=== PATIENT | female | born 1965 | race Hispanic/Latino ===

== ENCOUNTER 2022-08-04 11:06 | Emergency (ER) | payer BC, SELFPAY ==
[2022-08-04 11:25] VITALS: BP 122/72; PULSE 62; RESP 14; TEMP 36.5; O2SAT 99; BMI 37.1
[2022-08-04] MEDS: KETOROLAC 30 MG/ML VIAL 15 MG IV (11:47)
[2022-08-04 11:51] LABS: Add Manual Diff / Slide Review NO; Basophils Absolute Auto 100 /uL (0-100); Basophils Percent Auto 1.1 % (0-2); Eosinophils Absolute Auto 200 /uL (0-450); Eosinophils Percent Auto 3.4 % (2-4); Hematocrit 42.4 % (36-46); Hemoglobin 14.3 g/dL (12.0-16.0); Lymphocytes Absolute Auto 2400 /uL (1100-4500); Lymphocytes Percent Auto 42.8 % (25-40); Mean Corpuscular HGB Conc 33.8 % (30-36); Mean Corpuscular Volume 91.6 fL (80-100); Monocytes Absolute Auto 400 /uL (0-900); Monocytes Percent Auto 7.5 % (3-14); Neutrophils Absolute Auto 2600 /uL (1500-7000); Neutrophils Percent Auto 45.2 % (50-75); Platelet Count 289 X10^3/uL (150-400); Red Blood Cell Count 4.63 X10^6/uL (4.0-5.2); White Blood Cell Count 5.7 X10^3/uL (4.5-11.0)
[2022-08-04 11:59] LABS: Alanine Aminotransferase 31 IU/L (<35); Albumin 4.5 g/dL (3.5-5.0); Albumin Globulin Ratio 1.3 (1.0-2.8); Alkaline Phosphatase 97 U/L (38-126); Aspartate Aminotransferase 25 IU/L (14-36); BUN Creatinine Ratio 16.3 (6-22); Bilirubin Total 0.8 mg/dL (0.2-1.3); Blood Urea Nitrogen 13 mg/dL (7-17); Calcium 9.3 mg/dL (8.4-10.2); Carbon Dioxide 29 mmol/L (22-32); Chloride 102 mmol/L (98-107); Estimated Glomerular Filt Rate > 60 mL/min (>60); Globulin 3.4 g/dL (1.7-4.1); Glucose 107 mg/dL (70-100); HEMOLYSIS < 15 (0-50); Lipase 85 U/L (23-300); Sodium 140 mmol/L (137-145); Total Protein 7.9 g/dL (6.3-8.2)
--- NOTE | 2022-08-04 12:45 | DI.US.S_ITS ---
PROCEDURE: US ABDOMEN LIMITED INDICATIONS: RUQ pain TECHNIQUE: Real-time focused scanning was performed of the abdomen, with image documentation. COMPARISON: None. FINDINGS: The liver demonstrates normal size. The liver demonstrates generalized mildly increased echogenicity. This decreases ultrasound sensitivity for detection of hepatic masses. Status post cholecystectomy. There is no biliary dilatation for a post cholecystectomy patient, the common bile duct measures 9 mm. The pancreas itself is unremarkable. Along the body of the pancreas, there is a nonvascular fluid collection seen that measures up to 16 mm. IMPRESSION: Status post cholecystectomy, without biliary dilatation. Apparent 16 mm cystic lesion seen along the body of the pancreas. When clinically appropriate, please consider a dedicated pancreas protocol CT or MRI for further evaluation. The liver demonstrates increased echogenicity. This finding is nonspecific, yet it is most commonly attributed to fatty infiltration. Dictated by: Alton Cheng M.D. on 08/04/2022 at 13:26 Approved by: Alton Cheng M.D. on 08/04/2022 at 13:27
--- NOTE | 2022-08-04 14:11 | ED.ABDPAIN ---
HPI - Abdominal Pain <KYLEE Henson - Last Filed: 08/04/22 16:39> General Chief Complaint: Abdominal Pain Stated Complaint: PHYS REFERRED; RT UPPER QUAD PAIN Time Seen by Provider: 08/04/22 14:10 Source: patient Mode of arrival: Ambulatory History of Present Illness HPI narrative: 56-year-old female, never smoker, presents emergency department with right-sided lower rib pain x2 weeks. Patient was evaluated in the [facility] walk-in clinic earlier today and referred to the emergency department for advanced imaging. Patient denies any trauma to that area but reports that the pain was initially worse but occurred less frequently, but is now constant and less intense. Patient states that when she uses her arms to get out of bed, lower herself into a bathtub or to rollover in bed from her right side to the left, the pain is worsened. History of cholecystectomy. Related Data Home Medications Medication Instructions Recorded Confirmed No Known Home Medications 08/04/22 08/04/22 Allergies Allergy/AdvReac Type Severity Reaction Status Date / Time hydrocodone AdvReac Intermediate ITCHING Verified 08/04/22 11:30 Review of Systems <KYLEE Henson - Last Filed: 08/04/22 16:39> Review of Systems Narrative: Narrative: See HPI. GENERAL: Denies chills, fatigue, fever, sweats. HEENT: Denies sinus pain, ear pain, sore throat, difficulty swallowing, dizziness. RESPIRATORY: Denies dyspnea, cough, wheezing, sputum. CARDIOVASCULAR: Denies chest pain, palpitations, edema. GASTROINTESTINAL: Denies nausea, vomiting, abdominal pain, diarrhea, constipation. : Denies dysuria, frequency, incontinence, hematuria, urinary retention, flank pain. MSK: Denies weakness, joint pain. Endorses right-sided lower rib pinpoint pain. SKIN: Denies rash, skin lesions, or pruritis. NEUROLOGIC: Denies weakness, dizziness, headache, numbness, confusion. PSYCHIATRIC: No concerning psychosocial issues. Patient History <KYLEE Henson - Last Filed: 08/04/22 16:39> Social History Smoking Status: Never smoker Smoking Status: Never smoker alcohol intake frequency: 0-2 drinks per day Substance Use Type: does not use Exam <KYLEE Henson - Last Filed: 08/04/22 16:39> Narrative Exam Narrative: Exam Narrative: GENERAL: This is a well-nourished, well-developed patient, in no acute distress. HEAD: Atraumatic. Normocephalic. EYES: Pupils equal round and reactive. Extraocular motions intact. No scleral icterus, injection or drainage. NECK: Trachea midline. No JVD or lymphadenopathy. Nontender. CARDIOVASCULAR: Regular rate and rhythm without murmurs, peripheral pulses intact, cap refill <2 sec. RESPIRATORY: Breath sounds equal and clear bilaterally. No wheezes, rales, or rhonchi. No cough. No increased respiratory effort. No accessory muscle use. GASTROINTESTINAL: Abdomen soft, non-tender, nondistended without guarding or rebound. No suprapubic pain. No CVA tenderness. MSK: Moves all extremities. Normal range of motion, no clubbing or edema. Neurovascularly intact. Pinpoint tenderness of right medial lower rib/ intercostal region #7. NEURO: A&O x 3. SKIN: Warm, dry, no rashes or lesions noted. Initial Vital Signs Initial Vital Signs: Vital Signs Temperature 97.7 F 08/04/22 11:25 Pulse Rate 62 08/04/22 11:25 Respiratory Rate 14 08/04/22 11:25 Blood Pressure 122/72 08/04/22 11:25 Pulse Oximetry 99 08/04/22 11:25 Oxygen Delivery Method 08/04/22 11:25 Reviewed <Suki Saldana DO - Last Filed: 08/04/22 18:50> Initial Vital Signs Initial Vital Signs: Vital Signs Temperature 97.7 F 08/04/22 11:25 Pulse Rate 62 08/04/22 11:25 Respiratory Rate 14 08/04/22 11:25 Blood Pressure 122/72 08/04/22 11:25 Pulse Oximetry 99 08/04/22 11:25 Oxygen Delivery Method 08/04/22 11:25 Course <KYLEE Henson - Last Filed: 08/04/22 16:39> Orders Ordered: ED Orders 08/04/22 11:40 Complete Blood Count AUTO DIFF Stat Comprehensive Metabolic Panel Stat Lipase Stat 08/04/22 11:46 EKG-12 Lead Stat 08/04/22 12:45 US abdomen limited Stat 08/04/22 14:50 CT Abdomen Pancreatic Protocol Stat Discontinued Medications Ketorolac Tromethamine (Ketorolac 30 Mg/Ml Vial) 15 mg IV NOW ONE Stop: 08/04/22 11:41 Last Admin: 08/04/22 11:47 Dose: 15 mg Documented By: MINNIE Ondansetron HCl (Ondansetron 4 Mg/2 Ml Inj) 4 mg IV NOW ONE Stop: 08/04/22 11:40 Last Admin: 08/04/22 11:40 Dose: Not Given Documented By: MINNIE Vital Signs Vital signs: Vital Signs - 8 hr 08/04/22 11:25 08/04/22 14:59 08/04/22 16:48 Temperature 97.7 F Pulse Rate 62 56 L 87 Respiratory Rate 14 15 Blood Pressure 122/72 119/56 L 110/78 Pulse Oximetry 99 98 99 Oxygen Delivery Method Room Air Room Air Room Air <Suki Saldana DO - Last Filed: 08/04/22 18:50> Orders Ordered: ED Orders 08/04/22 11:40 Complete Blood Count AUTO DIFF Stat Comprehensive Metabolic Panel Stat Lipase Stat 08/04/22 11:46 EKG-12 Lead Stat 08/04/22 12:45 US abdomen limited Stat 08/04/22 14:50 CT Abdomen Pancreatic Protocol Stat Discontinued Medications Ketorolac Tromethamine (Ketorolac 30 Mg/Ml Vial) 15 mg IV NOW ONE Stop: 08/04/22 11:41 Last Admin: 08/04/22 11:47 Dose: 15 mg Documented By: MINNIE Ondansetron HCl (Ondansetron 4 Mg/2 Ml Inj) 4 mg IV NOW ONE Stop: 08/04/22 11:40 Last Admin: 08/04/22 11:40 Dose: Not Given Documented By: MINNIE Vital Signs Vital signs: Vital Signs - 8 hr 08/04/22 11:25 08/04/22 14:59 08/04/22 16:48 Temperature 97.7 F Pulse Rate 62 56 L 87 Respiratory Rate 14 15 Blood Pressure 122/72 119/56 L 110/78 Pulse Oximetry 99 98 99 Oxygen Delivery Method Room Air Room Air Room Air MDM - Abdominal Pain <KYLEE Henson - Last Filed: 08/04/22 16:39> Differential Diagnosis Differential diagnosis: Likely abdominal pain, pancreatitis and other (Costochondritis); Unlikely acute appendicitis Lab Data 08/04/22 11:40 08/04/22 11:40 Labs: Lab Results 08/04/22 08/04/22 Range/Units 11:40 11:40 WBC 5.7 (4.5-11.0) X10^3/uL RBC 4.63 (4.0-5.2) X10^6/uL Hgb 14.3 (12.0-16.0) g/dL Hct 42.4 (36-46) % MCV 91.6 (80-100) fL MCH 31.0 (26-34) PG MCHC 33.8 (30-36) % RDW 13.0 (11.6-14.8) % Plt Count 289 (150-400) X10^3/uL Neut % (Auto) 45.2 L (50-75) % Lymph % (Auto) 42.8 H (25-40) % [place] % (Auto) 7.5 (3-14) % Eos % (Auto) 3.4 (2-4) % Baso % (Auto) 1.1 (0-2) % Neut # (Auto) 2600 (2301-9167) /uL Lymph # (Auto) 2400 (7552-6699) /uL [place] # (Auto) 400 (0-900) /uL Eos # (Auto) 200 (0-450) /uL Baso # (Auto) 100 (0-100) /uL Sodium 140 (137-145) mmol/L Potassium 4.0 (3.4-5.1) mmol/L Chloride 102 (98-107) mmol/L Carbon Dioxide 29 (22-32) mmol/L BUN 13 (7-17) mg/dL Creatinine 0.80 (0.52-1.04) mg/dL Estimated GFR > 60 (>60) mL/min BUN/Creatinine Ratio 16.3 (6-22) Glucose 107 H (70-100) mg/dL Calcium 9.3 (8.4-10.2) mg/dL Total Bilirubin 0.8 (0.2-1.3) mg/dL AST 25 (14-36) IU/L ALT 31 (<35) IU/L Alkaline Phosphatase 97 (38-126) U/L Total Protein 7.9 (6.3-8.2) g/dL Albumin 4.5 (3.5-5.0) g/dL Globulin 3.4 (1.7-4.1) g/dL Albumin/Globulin Ratio 1.3 (1.0-2.8) Lipase 85 (23-300) U/L Point of care testing: Urine Dip Bedside Urine Glucose Negative Bedside Urine Bilirubin - Negative Bedside Urine Ketone - Negative Urine Specific [place] 1.015 Bedside Urine Occult Blood - Negative Bedside Urine pH 7 Bedside Urine Protein - Negative Bedside Urine Urobilinogen - Negative Bedside Urine Nitrite - Negative Bedside Urine Leukocytes - Negative Esterase Imaging Data US - abdomen: Radiologist's Impression: [address] [address] Ultrasound Report Signed Patient: Flora Jesus MR#: [id number] : 1965 Acct:[id number] Age/Sex: 56 / F Date of Service: 08/04/22 Loc: ED Accession Number: [id number] ?? Procedure: US abdomen limited Ordering Provider: Suki Saldana D.O. PROCEDURE: US ABDOMEN LIMITED ? INDICATIONS:? RUQ pain ? TECHNIQUE:? Real-time focused scanning was performed of the abdomen, with image documentation.? ? COMPARISON:? None. ? FINDINGS:? The liver demonstrates normal size. The liver demonstrates generalized mildly increased echogenicity. This decreases ultrasound sensitivity for detection of hepatic masses.? ? Status post cholecystectomy. ? There is no biliary dilatation for a post cholecystectomy patient, the common bile duct measures 9 mm.? ? The pancreas itself is unremarkable.? Along the body of the pancreas, there is a nonvascular fluid collection seen that measures up to 16 mm.? IMPRESSION:? Status post cholecystectomy, without biliary dilatation. ? Apparent 16 mm cystic lesion seen along the body of the pancreas.? When clinically appropriate, please consider a dedicated pancreas protocol CT or MRI for further evaluation. ? The liver demonstrates increased echogenicity.? This finding is nonspecific, yet it is most commonly attributed to fatty infiltration.? ? ? Dictated by: Alton Cheng M.D. on 08/04/2022 at 13:26 ? ? Approved by: Alton Cheng M.D. on 08/04/2022 at 13:27 ? CT scan - abdomen/pelvis: Radiologist's Impression: [address] [place] [address] CT Scan Report Signed Patient: Flora Jesus MR#: [id number] : 1965 Acct:[id number] Age/Sex: 56 / F Date of Service: 08/04/22 Loc: ED Accession Number: [id number] ?? Procedure: CT Abdomen Pancreatic Protocol Ordering Provider: Rj Ponce PROCEDURE:? CT ABDOMEN PANCREATIC PROTOCOL ? INDICATIONS:? f/u US results, 16 mm cystic mass on pancreas ? TECHNIQUE:? After the administration of intravenous contrast, 3 mm thick pancreatic-phase images acquired from the diaphragm to the iliac crests.? 3 mm thick coronal and sagittal reformats were performed.? For radiation dose reduction, the following was used:? automated exposure control, adjustment of mA and/or kV according to patient size.? ? COMPARISON:? [facility], , US ABDOMEN LIMITED, 08/04/2022, 13:22. ? FINDINGS:? Image quality:? Excellent.? ? Lung bases:? Lung bases are clear.? Heart size is normal.? ? Pancreas:? Pancreas enhances uniformly.? No peripancreatic fluid collection.? There is a small cyst in the body of the pancreas measuring 1.4 cm, ().? No pancreatic ductal dilatation.? No suspicious enhancement. ? Other solid organs:? Liver is normal in size and enhancement.? Gallbladder is absent.? Biliary system is non dilated.? Spleen is normal in size and enhancement.? No adrenal nodules.? Kidneys are normal in size and enhancement, without hydronephrosis.? Small nonobstructing at left kidney stone measuring 0.6 cm.? Punctate nonobstructing right kidney stone. ? Peritoneum and bowel:? Unenhanced bowel loops demonstrate normal wall thickness and caliber.? Appendix is partially visualized and is not distended.? No free fluid or air.? ? Nodes and vessels:? No retroperitoneal or mesenteric adenopathy by size criteria.? Aorta and inferior vena cava are normal in size. ? Bones:? No suspicious bony lesions.? Moderate degenerative change in the lumbar spine.? No vertebral body compression fractures.? ? Miscellaneous:? No ventral hernias.? Small clip in the lower abdomen. ? ? IMPRESSION:? 1. No acute abnormality identified.? No free fluid. ? 2. Small nonobstructing kidney stones. ? 3. Small cyst in the body of the pancreas measuring 1.4 cm.? This could represent a serous cyst or IPMN.? Recommend follow-up MRI pancreas in 1 year. ? ? ? Dictated by: Mark Nagel M.D. on 08/04/2022 at 15:54 ? ? Approved by: Mark Nagel M.D. on 08/04/2022 at 16:02 ? MDM Narrative Medical decision making narrative: 56-year-old female presents to the emergency department with complaints right upper quadrant/lower rib pain x2 weeks. Assessment was encouraging with no red flag symptoms noticed. Labs were not concerning. Abdominal ultrasound reveals 16 mm cystic lesion seen along the body of the pancreas. Abdominal CT scan ordered and reveals 1.4 cm small cyst in the body of the pancreas. Symptoms are suspicious for costochondritis. Recommended ibuprofen 3 times a day with food or milk for the next 3-5 days. Recommend patient follow up with her family doctor as needed. For any worsening symptoms, patient directed to return to the emergency department. Patient verbalized understanding was agreeable with course of action. <Suki Saldaan, DO - Last Filed: 08/04/22 18:50> Lab Data Labs: Lab Results 08/04/22 08/04/22 Range/Units 11:40 11:40 WBC 5.7 (4.5-11.0) X10^3/uL RBC 4.63 (4.0-5.2) X10^6/uL Hgb 14.3 (12.0-16.0) g/dL Hct 42.4 (36-46) % MCV 91.6 (80-100) fL MCH 31.0 (26-34) PG MCHC 33.8 (30-36) % RDW 13.0 (11.6-14.8) % Plt Count 289 (150-400) X10^3/uL Neut % (Auto) 45.2 L (50-75) % Lymph % (Auto) 42.8 H (25-40) % [place] % (Auto) 7.5 (3-14) % Eos % (Auto) 3.4 (2-4) % Baso % (Auto) 1.1 (0-2) % Neut # (Auto) 2600 (8615-7279) /uL Lymph # (Auto) 2400 (0885-9928) /uL [place] # (Auto) 400 (0-900) /uL Eos # (Auto) 200 (0-450) /uL Baso # (Auto) 100 (0-100) /uL Sodium 140 (137-145) mmol/L Potassium 4.0 (3.4-5.1) mmol/L Chloride 102 (98-107) mmol/L Carbon Dioxide 29 (22-32) mmol/L BUN 13 (7-17) mg/dL Creatinine 0.80 (0.52-1.04) mg/dL Estimated GFR > 60 (>60) mL/min BUN/Creatinine Ratio 16.3 (6-22) Glucose 107 H (70-100) mg/dL Calcium 9.3 (8.4-10.2) mg/dL Total Bilirubin 0.8 (0.2-1.3) mg/dL AST 25 (14-36) IU/L ALT 31 (<35) IU/L Alkaline Phosphatase 97 (38-126) U/L Total Protein 7.9 (6.3-8.2) g/dL Albumin 4.5 (3.5-5.0) g/dL Globulin 3.4 (1.7-4.1) g/dL Albumin/Globulin Ratio 1.3 (1.0-2.8) Lipase 85 (23-300) U/L Point of care testing: Urine Dip Bedside Urine Glucose Negative Bedside Urine Bilirubin - Negative Bedside Urine Ketone - Negative Urine Specific [place] 1.015 Bedside Urine Occult Blood - Negative Bedside Urine pH 7 Bedside Urine Protein - Negative Bedside Urine Urobilinogen - Negative Bedside Urine Nitrite - Negative Bedside Urine Leukocytes - Negative Esterase Discharge Plan Departure Patient Disposition: Home Clinical Impression: Acute costochondritis Instructions: DI for Costochondritis Activity Restrictions/Additional Instructions: *You have been diagnosed with costochondritis. I recommend you take ibuprofen 600 mg 3 times a day with food or milk for the next 3-[address] revealed a 1.4 cm cyst on your pancreas with radiologist's recommendation of a repeat CT in 1 year. Please follow-up with your family doctor as needed. For any worsening symptoms that include chest pain, shortness of breath, abdominal pain or intolerable pain, please return to the emergency department. *What to do: *Please continue to take your regular medications as directed. [ ] New medication prescriptions sent to your pharmacy: [ ] [ ] New medication written as a paper prescription [x ] No new medications given *Please follow up with your primary care provider in 2-3 days, call for an appointment. Let them know you were seen in the Emergency Department and that we ask that you be seen in follow up. We will electronically transmit a record of today's note if your PCP is in our system *If you do not have a primary care provider please contact the [facility] Resource line at [phone]. They will ask some questions about your medical history and help get you set up with a doctor in the community. ? Return to ER if you should have any new, worsening or concerning symptoms, such as worsening pain, severe headache, confusion, chest pain, difficulty breathing, fever greater than 101 F, shaking chills, persistent vomiting to the point that you cannot drink fluids, or other new or worsening symptoms. Prescriptions: No Action No Known Home Medications Referrals: Tessa Hernandez PA-C [Primary Care Provider] - Stand Alone Forms: Patient Portal/API <Suki Saldana DO - Last Filed: 08/04/22 18:50> Cosign ED Attending Anastasiaature Attestation: I was immediately available in the department for consultation. Documentation has been reviewed.
--- NOTE | 2022-08-04 14:50 | DI.CT.S_ITS ---
PROCEDURE: CT ABDOMEN PANCREATIC PROTOCOL INDICATIONS: f/u US results, 16 mm cystic mass on pancreas TECHNIQUE: After the administration of intravenous contrast, 3 mm thick pancreatic-phase images acquired from the diaphragm to the iliac crests. 3 mm thick coronal and sagittal reformats were performed. For radiation dose reduction, the following was used: automated exposure control, adjustment of mA and/or kV according to patient size. COMPARISON: [facility], US, US ABDOMEN LIMITED, 08/04/2022, 13:22. FINDINGS: Image quality: Excellent. Lung bases: Lung bases are clear. Heart size is normal. Pancreas: Pancreas enhances uniformly. No peripancreatic fluid collection. There is a small cyst in the body of the pancreas measuring 1.4 cm, (2/42). No pancreatic ductal dilatation. No suspicious enhancement. Other solid organs: Liver is normal in size and enhancement. Gallbladder is absent. Biliary system is non dilated. Spleen is normal in size and enhancement. No adrenal nodules. Kidneys are normal in size and enhancement, without hydronephrosis. Small nonobstructing at left kidney stone measuring 0.6 cm. Punctate nonobstructing right kidney stone. Peritoneum and bowel: Unenhanced bowel loops demonstrate normal wall thickness and caliber. Appendix is partially visualized and is not distended. No free fluid or air. Nodes and vessels: No retroperitoneal or mesenteric adenopathy by size criteria. Aorta and inferior vena cava are normal in size. Bones: No suspicious bony lesions. Moderate degenerative change in the lumbar spine. No vertebral body compression fractures. Miscellaneous: No ventral hernias. Small clip in the lower abdomen. IMPRESSION: 1. No acute abnormality identified. No free fluid. 2. Small nonobstructing kidney stones. 3. Small cyst in the body of the pancreas measuring 1.4 cm. This could represent a serous cyst or IPMN. Recommend follow-up MRI pancreas in 1 year. Dictated by: Mark Nagel M.D. on 08/04/2022 at 15:54 Approved by: Mark Nagel M.D. on 08/04/2022 at 16:02
[2022-08-04 14:59] VITALS: BP 119/56; PULSE 56; O2SAT 98
[2022-08-04 16:48] VITALS: BP 110/78; PULSE 87; RESP 15; O2SAT 99
== END 2022-08-04 16:49 | disposition home or self-care (01) ==
PROVIDERS: Emergency Medicine; Emergency Provider Registered Nurse; PCP Physician Assistant
DX: M94.0 Chondrocostal junction syndrome [Tietze] (principal); R10.11 Right upper quadrant pain
CPT/HCPCS: 36415; 74160; 76705; 80053; 81003; 83690; 85025; 93005; 96374; 99284; J1885; Q9967